=== PATIENT | female | born 1960 | race Two or more races ===

== ENCOUNTER 2018-05-09 19:28 | Emergency (ER) | payer SELFPAY, OTHER ==
[2018-05-09 20:13] LABS: WHITE BLOOD COUNT 8.6 10^3/ul (4.8-10.8)
[2018-05-09 20:13] LABS: HEMATOCRIT 41.4 % (37.0-47.0); HEMOGLOBIN 13.3 g/dl (12.0-16.0); MEAN CORPUSCULAR HEMOGLOBIN 27.7 pg (29.0-33.0); MEAN CORPUSCULAR HGB CONC 32.1 g/dl (32.0-37.0); MEAN CORPUSCULAR VOLUME 86.3 fl (82.0-101.0); PLATELET COUNT 180 10^3/UL (140-415); RED CELL DISTRIBUTION WIDTH 14.9 % (11.5-14.5)
[2018-05-09 20:17] LABS: ADD MAN DIFF? YES; POSITIVE DIFF @See below
[2018-05-09] MEDS: LIDOCAINE/MYLANTA 40 ML BTL PO (20:17)
[2018-05-09] MEDS: SOD CHLORIDE 0.9% 1,000 ML IV (20:17)
[2018-05-09] MEDS: BELLADONNA/PHENOBARBITAL TAB PO (20:17)
[2018-05-09] MEDS: FAMOTIDINE 20 MG INJ IV (20:17)
[2018-05-09 20:19] LABS: ADD UMIC YES; UR ASCORBIC ACID NEGATIVE (NEGATIVE); UR BACTERIA FEW /HPF (NONE SEEN); UR BILIRUBIN (Dip) NEGATIVE (NEGATIVE); UR BLOOD (Dip) 1+ mg/dL (NEGATIVE); UR CLARITY CLOUDY (CLEAR); UR COLOR AMBER (YELLOW); UR GLUCOSE (Dip) NEGATIVE (NEGATIVE); UR KETONES (Dip) NEGATIVE (NEGATIVE); UR LEUKOCYTE ESTERASE (Dip) 2+ Leu/ul (NEGATIVE); UR MUCUS MANY /HPF (NONE SEEN); UR NITRITE (Dip) NEGATIVE (NEGATIVE); UR RBC 4 /HPF (0-5); UR SPECIFIC GRAVITY (Dip) 1.018 (1.003-1.030); UR SQUAMOUS EPITHELIAL CELL MODERATE /HPF (FEW); UR TOTAL PROTEIN (Dip) 3+ mg/dl (NEGATIVE); UR UROBILINOGEN (Dip) NEGATIVE (NEGATIVE); UR WBC 34 /HPF (0-5)
[2018-05-09 20:31] LABS: ALANINE AMINOTRANSFERASE 55 IU/L (13-69); ALBUMIN 4.2 g/dl (3.3-4.9); ALBUMIN/GLOBULIN RATIO 0.93; ALKALINE PHOSPHATASE 95 IU/L (42-121); ANION GAP 11 (5-13); ASPARTATE AMINO TRANSFERASE 57 IU/L (15-46); BLOOD UREA NITROGEN 8 mg/dl (7-20); CALCIUM 9.5 mg/dl (8.4-10.2); CARBON DIOXIDE 27 mmol/L (21-31); CHLORIDE 103 mmol/L (97-110); CREATININE 0.98 mg/dl (0.44-1.00); Estimated GFR 58 mL/min (>60); GLUCOSE 127 mg/dl (70-220); LIPASE 111 U/L (23-300); POTASSIUM 3.8 mmol/L (3.5-5.1); SODIUM 141 mmol/L (135-144); TOTAL PROTEIN 8.7 g/dl (6.1-8.1)
[2018-05-09] MEDS: ONDANSETRON INJ 8 MG in DEXTROSE 5% 50 ML IV (20:32)
[2018-05-09 20:45] LABS: BAND NEUTROPHILS #M 0.7 10^3/ul (0.0-0.6); BAND NEUTROPHILS % (M) 9 % (0-4); EOSINOPHILS % (M) 1 % (0-7); LYMPHOCYTES #M 3.4 10^3/ul (0.8-2.9); LYMPHOCYTES % (M) 40 % (15-51); MONOCYTE #M 0.1 10^3/ul (0.3-0.9); MONOCYTES % (M) 2 % (0-11); PLATELET ESTIMATE NORMAL; SEG NEUT #M 4.2 10^3/ul (1.6-7.5); SEGMENTED NEUTROPHILS (M) % 48 % (39-77); SMUDGE%M 5 % (0-0)
== END 2018-05-09 21:59 | disposition home or self-care (01) ==
LOC: E/R 19:28
DX: R10.10 Upper abdominal pain, unspecified (principal); N30.01 Acute cystitis with hematuria; I10 Essential (primary) hypertension; D72.825 Bandemia
CPT/HCPCS: 36415; 80053; 81001; 83690; 85025; 96374; 96375; 99284-25

== ENCOUNTER 2018-11-08 15:56 | Emergency (ER) | payer OTHER ==
[2018-11-08] MEDS: NICARDipine HCL 30 MG CAPSULE PO (16:28)
== END 2018-11-08 17:26 | disposition home or self-care (01) ==
LOC: E/R 15:56
DX: I10 Essential (primary) hypertension (principal); F17.210 Nicotine dependence, cigarettes, uncomplicated
CPT/HCPCS: 82962; 93005; 99283-25